=== PATIENT | male | born 1975 | race Caucasian/White ===

== ENCOUNTER 2018-05-26 07:00 | Emergency (ER) | payer SELFPAY ==
[2018-05-26 07:14] VITALS: BP 132/102
--- NOTE | 2018-05-26 07:37 | EDPHY ---
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 He has had a right-sided facial rash which is read pustules below his jaw and on his neck since . He is here studying for the [employer] and has been in [place] from month and is supposed to leave to go back to [place] in about a week. He presents to me today saying that the rash "just isn't healing" and needs advice on what to do. He denies fever or chills or new back pain. No weakness or numbness in extremities. No trouble swallowing or breathing. REVIEW OF SYSTEMS: HPI PAST MEDICAL HISTORY: Previous MRSA infection Social history: His infectious disease physician is in [place] [facility] Appearance: Alert and conversant, cooperative. Ambulatory, fluent speech, normal voice, no stridor. Multiple pustules on the right face below the angle of the jaw and on the neck. No lymphangitis, no trouble with range of motion of the neck, no trismus. Vital signs reviewed, patient does not look septic or toxic. Emergency Department course/MDM: Discussed with ID Dr. Garcia at [phone]; he will call the patient in the next hour and see in clinic today. The patient's rash by his account is been stable for the last couple of months. He just is here because it is not healing and he is worried he will have a recurrence of severe bacteremia like he had last summer. I do not think he requires IV antibiotics or hospitalization. He will be seen by infectious disease in the clinic today; patient says he is okay with this plan. Smoking Status: Never smoked Constitutional: Initial Vital Signs Temperature (C) 36.3 C 05/26/18 07:10 Heart Rate 83 05/26/18 07:10 Respiratory Rate 16 05/26/18 07:10 Blood Pressure 132/102 H 05/26/18 07:10 O2 Sat (%) 93 05/26/18 07:10 O2 Delivery Mode Room Air Allergies/Adverse Reactions: tetracycline Allergy (Verified 05/26/18 07:10) Home Medications: Medication Instructions Recorded Bactrim DS 05/26/18 MDM/Departure - Depart Disposition: Home, Routine, Self-Care Clinical Impression: facial folliculitis Condition: Good Instructions: Acute Rash (ED) Additional Instructions: ID will call you in the next hour to arrange office followup today. Referrals: Robert Garcia MD [Medical Doctor] - As per Instructions
== END 2018-05-26 08:00 | disposition home or self-care (01) ==
DX: L73.9 Follicular disorder, unspecified (principal)